=== PATIENT | female | born 1985 | race Caucasian/White ===

== ENCOUNTER 2018-07-04 19:06 | Outpatient (AMB) | payer OTHER, SELFPAY ==
[2018-07-04 19:23] VITALS: BP 138/88; PULSE 78; RESP 18; TEMP 37.2; O2SAT 98; BMI 35.2
--- NOTE | 2018-07-04 19:23 | UCVISIT ---
Intake Ht./Wt. Decline/Exclusions Patient Declined Height and Weight this visit: No PT Meets exclusion criteria: No Vital Signs 07/04/18 19:23 Height 5 ft 6 in Height Method Measured Weight Measurement Method Standing Scale BMI 35.2 Temp 98.9 F Temp Source Temporal Artery Scan Pulse 78 Pulse Source Monitor Respiration 18 BP 138/88 H Blood Pressure Source Automatic Cuff Blood Pressure Location Left Upper Arm Position Sitting Pulse Oximetry (%) 98 Oxygen Delivery Method Room Air Intake Zika Travel: No Been in contact w/anyone who has been Dx w/Zika Virus: No Been in contact w/anyone sick during travel outside country: No Patient >or equal to 18 years BMI outside of range 18.5-24.9: Yes Visit Reasons: UC Visit Primary Care Provider: Ricardo Woodruff Is patient in pain?: Yes Pain Location:: R 3RD FINGER Sanders-Munoz/Numerical: 5 Pain Scale Used: Numeric (1 - 10) Triage Triage Allergy / Med Rec Allergies Sulfa (Sulfonamide Antibiotics) Allergy (Unknown, Unverified 07/04/18 19:29) SWELLING Band Placement: Patient Identification SMILEY: [id number] Arrival Mode of Arrival: Private Vehicle Method of Arrival: Ambulatory Accompanied By: Self PCP or OBGYN visit in last 3 months: No Language Preferred Language: Macedonian Black Powder Glazing Operator Required: No Female History Now: No Last Menstrual Period: 06/24/18 : No Social History Alcohol / Drugs Hx Alcohol Use: Yes Hx Substance Use: No Safety Do You Feel Safe at Home: Yes Authorities Contacted: N/A Carrera Fall Scale Special Populations Patient Comatose, Paralyzed or Immobile: No Patient Under the Age of 44 Years Old: No Assessment History of falling; immediate or within 3 months: No Secondary diagnosis: No Ambulatory aid: None IV Infusion: No Gait/Transferring: Normal/bedrest/immobile Mental Status: Oriented to own ability Score Score: 0 Risk Level/Action Risk Level: Low Risk Action: Good Basic Nursing Care Fall Star Level 1 Fall Star Level 1: Yes Patient Education Topic Education Topics: Plan of Care Teaching Recipient: Patient Readiness, Motivation to Learn: Active Methods: Electronic Education / Instruction and Verbal instruction Educ Materials Suggested by INFO Button/Rx Monograph Given: No Response: Verbalize Understanding Black Powder Glazing Operator Required: No Population Health PM Hx Congestive Heart Failure: No Hx Diabetes Mellitus Type 1: No Hx Diabetes Mellitus Type 2: No Hx Renal Disease: No Hx Chronic Obstructive Pulmonary Disease (COPD): No Past Medical History Reviewed and agree with Nursing documentation.: Yes Cardiac Medical History Hx Congestive Heart Failure: No Endocrine Medical History Hx Diabetes Mellitus Type 1: No Hx Diabetes Mellitus Type 2: No Genitourinary Medical History Hx Renal Disease: No Respiratory Medical History Hx COPD: No HPI UC Visit Details: Patient presents to the urgent care with possible infection to the right middle finger times 1.5 days that is getting worse per Review of Systems (UC) Review of Systems All systems reviewed & no additional complaints except as documented Exam (UC) Limitations: no limitations General Appearance: alert, in no apparent distress, comfortable, cooperative, healthy appearing, well developed and well groomed Head exam: atraumatic, normocephalic and normal inspection Eye exam: Reports normal appearance and Reports EOMI Chest/Breast Exam: Present normal inspection and symmetric chest wall rise SPO2%: 98% SPO2 type: Room Air SPO2% Normal/Abnormal: Normal Respiratory exam: Present normal respiratory effort and able to speak in complete sentences Extremities exam: full ROM, tenderness (And swelling at the right index finger at proximal border of the middle fingernail with some fluctuance) and normal capillary refill Back exam: Present normal inspection Neurological Exam: Present alert, awake and oriented X3 Psychiatric exam: Present normal affect and normal mood Skin exam: Present dry, intact and erythema (At the distal right middle finger at the border) Office Procedures UC Level of Care Nursing/Assessment/Reassessment Patient Status: Established Patient Nursing Assessment/Reassessment: Triage Asessment, Initial Vital Signs and RN General Assessments Coordination of Care: DC Instructions Simple Established Patient Charge Established Patient Point Assignment: 40 Established Patient Point Assignment: EP Level 2 (40-75) Procedures: Pulse Ox reading: Yes UC Procedures Abscess I/D Time Out Performed: Yes Site: other (finger (index)) Side (if applicable): right Skin Prep: povidone-iodine1% Local Anesthetic: lidocaine 1% Amount of anesthetic used (mL): 1 Technique: needle aspiration Amount of fluid expressed (mL): 1 Irrigation: Yes Packing used?: none Patient Tolerated Procedure:: well Assessment and Plan Assessment & Plan (1) Paronychia of right middle finger: Plan Details Other Medications: New: Xylocaine (lidocaine HCl) 200 mg (20 mL) Infiltration ONCE 20 mL 0RF NS Other Orders: Orders: UC Xylocaine 10 mg/ml (1%) 200 mg - 20 ml injection soln (lidocaine HCL) Today Primary Care Provider: Ricardo Woodruff Instructions: ED Fingernail Infec Additional Information PA/REPLENISHMENT BUYER Supervising Physician: Thompson Castañeda DC Evaluation Discharge Information Seen, Treated and Released by Provider: No Left Prior to Receiving Discharge Instructions: No Transfer to Outside Facility: No Vital Signs Vitals Signs N/A: Yes Pain Pain Medication / Other Intervention Provided: No Medication Medication Given this Visit: No Discharge Information Condition on Discharge: Stable Mode of Discharge: Ambulatory Discharge Transportation: Private Vehicle Instructions Black Powder Glazing Operator Required: No Discharge Instructions Given To: Patient Was Follow up Care Ordered: Yes Verbalizes Understanding of Discharge Instructions: Yes [facility] information card provided?: No Patient plan follow up w/PCP for [facility]: No
== END 2018-07-04 20:10 | disposition home or self-care (01) ==
PROVIDERS: Referring Provider Family Medicine; Visit Provider Physician Assistant Medical
DX: I10 Essential (primary) hypertension (principal)